=== PATIENT | female | born 1940 | race American Indian/Alaskan Native ===

== ENCOUNTER → 2018-02-08 | Outpatient (CLI) | payer OTHER | END | disposition home or self-care (01) | LOC: LAB SHORT 12:29 → LAB EV 12:29 | DX: N39.0 Urinary tract infection, site not specified (principal) | CPT/HCPCS: 87077; 87086; 87186 ==

== ENCOUNTER → 2018-05-23 | Outpatient (CLI) | payer OTHER ==
[2018-05-23 12:51] LABS: BASOPHILS ABSOLUTE AUTO 0.04 K/mm3 (0.00-0.23); BASOPHILS PERCENT AUTO 0 % (0-2); EOSINOPHILS ABSOLUTE AUTO 0.04 K/mm3 (0.00-0.68); EOSINOPHILS PERCENT AUTO 0 % (0-6); Hematocrit 39.3 % (33.0-51.0); Hemoglobin 12.7 g/dL (11.5-16.0); IMMATURE GRAN ABSOLUTE AUTO 0.04 K/mm3 (0.00-0.10); IMMATURE GRAN PERCENT AUTO 0 % (0-1); LYMPHOCYTES ABSOLUTE AUTO 2.33 K/mm3 (0.84-5.20); LYMPHOCYTES PERCENT AUTO 22 % (21-46); MONOCYTES ABSOLUTE AUTO 0.69 K/mm3 (0.16-1.47); MONOCYTES PERCENT AUTO 7 % (4-13); Mean Corpuscular HGB 25.2 pg (26.0-34.0); Mean Corpuscular HGB Conc 32.3 g/dL (31.5-36.5); Mean Corpuscular Volume 78 fL (80-100); Mean Platelet Volume 9.8 fL (9.1-12.4); NEUTROPHILS ABSOLUTE AUTO 7.38 K/mm3 (1.96-9.15); NEUTROPHILS PERCENT AUTO 70 % (41-73); Platelet Count 323 K/mm3 (150-400); RDW Coefficient Variation 15.7 % (11.7-14.2); Red Blood Cell Count 5.03 M/mm3 (3.80-5.20); White Blood Cell Count 10.52 K/mm3 (4.00-11.30)
[2018-05-23 13:06] LABS: Anion Gap 12 mmol/L (6-16); Blood Urea Nitrogen 30 mg/dL (8-24); Bun/Creatinine Ratio 26.8 (12.0-20.0); CO2, Blood 25 mmol/L (21-32); Calcium, Blood 9.6 mg/dL (8.5-10.1); Chloride, Blood 100 mmol/L (98-108); Creatinine, Blood 1.12 mg/dL (0.40-1.00); Glomerular Filtration Rate 47 (60-); Glucose, Blood 162 mg/dL (70-99); Potassium, Blood 4.1 mmol/L (3.5-5.5); Sodium, Blood 137 mmol/L (136-145); Troponin I <0.017 ng/mL (0.000-0.040)
== END ==
LOC: LAB SHORT 12:47
PROVIDERS: Family Medicine
DX: R07.9 Chest pain, unspecified (principal)
CPT/HCPCS: 80048; 84484; 85025

== ENCOUNTER → 2018-09-02 | Outpatient (CLI) | payer OTHER | END | disposition home or self-care (01) | LOC: LAB EV 14:12 → LAB SHORT 14:12 | DX: N39.0 Urinary tract infection, site not specified (principal) | CPT/HCPCS: 87077; 87086; 87186 ==

== ENCOUNTER 2018-11-06 14:29 | Inpatient (IN) | payer OTHER ==
[~2018-11-06] VITALS: Ht 160 cm; Wt 65.7 kg
[2018-11-06] MEDS ORDERED: Metformin HCl500 MG PO (18:58)
[2018-11-06] MEDS ORDERED: SIMV10 PO (18:59)
[2018-11-06] MEDS ORDERED: Mobic15 MG PO (19:00)
[2018-11-06] MEDS ORDERED: LISI5 PO (19:00)
[2018-11-06] MEDS ORDERED: LEVSOD50 PO (19:01)
[2018-11-06] MEDS ORDERED: Calcium Carb 51 EACH PO (19:02)
[2018-11-06] MEDS ORDERED: Super B Comple1 EAC2 PO (19:03)
[2018-11-06] MEDS ORDERED: FISH OIL 1,0001 EAC1 PO (19:04)
[2018-11-06] MEDS ORDERED: ASPI325 PO (19:04)
--- NOTE | 2018-11-06 20:08 | NUR ---
Initial Visit: Palliative Care Consult for AD/POLS and Advanced Care Planning. Pt is A&O and reports 10/10 pain in her upper abdomen. Pt is currently attempting to eat a little food so her nurse can give her pain medication. She dion anxiety and SOB at this time. Pt reports 6/7 depression and states she has been feeling depressed since she moved here from [place]. Engaged in therapeutic conversation about goals of care. Pt reports that she lives with her sister Holli and her niece. Her son lives in [place]. She reports no particular religous belief but does believe in God. Pt reports that she is independent at home with the exception of her niece doing the cooking and drives her around. Discussed AD/POLST and Pt reports that she does not have either one. Educated Pt on each section of AD and POLST. Pt reports that she will discuss completing form with her niece. Pt reports no other concerns at this time. Plan: F/U for symptom managment (pain and depression). Discuss with hospitalist appropriatness of starting Pt on antidepression medication and possibility of referal for counseling upon discharge.
[2018-11-07 05:58] LABS: BASOPHILS ABSOLUTE AUTO 0.03 K/mm3 (0.00-0.23); BASOPHILS PERCENT AUTO 0 % (0-2); EOSINOPHILS ABSOLUTE AUTO 0.02 K/mm3 (0.00-0.68); EOSINOPHILS PERCENT AUTO 0 % (0-6); Hemoglobin 8.3 g/dL (11.5-16.0); IMMATURE GRAN ABSOLUTE AUTO 0.05 K/mm3 (0.00-0.10); IMMATURE GRAN PERCENT AUTO 1 % (0-1); LYMPHOCYTES ABSOLUTE AUTO 1.53 K/mm3 (0.84-5.20); LYMPHOCYTES PERCENT AUTO 14 % (21-46); MONOCYTES ABSOLUTE AUTO 0.77 K/mm3 (0.16-1.47); MONOCYTES PERCENT AUTO 7 % (4-13); Mean Corpuscular HGB 22.3 pg (26.0-34.0); Mean Corpuscular HGB Conc 30.7 g/dL (31.5-36.5); Mean Corpuscular Volume 72 fL (80-100); Mean Platelet Volume 10.5 fL (9.1-12.4); NEUTROPHILS ABSOLUTE AUTO 8.44 K/mm3 (1.96-9.15); NEUTROPHILS PERCENT AUTO 78 % (41-73); Platelet Count 334 K/mm3 (150-400); RDW Coefficient Variation 15.7 % (11.7-14.2); RDW Standard Deviation 40.6 fL (35.1-46.3); Red Blood Cell Count 3.73 M/mm3 (3.80-5.20); White Blood Cell Count 10.84 K/mm3 (4.00-11.30)
[2018-11-07 06:16] LABS: Cholesterol 92 mg/dL (50-200); Triglycerides 89 mg/dL (30-160)
--- NOTE | 2018-11-07 12:57 | NUR ---
Pt visit this afternoon. Pt denies pain at this time and reports pain is managed with current regimen. She denies anxiety and depression at this time. Offered to discuss antidepressant medication with hospitalist and she denies need at this time. Will remain available.
[2018-11-07 15:15] LABS: BASOPHILS ABSOLUTE AUTO 0.03 K/mm3 (0.00-0.23); BASOPHILS PERCENT AUTO 0 % (0-2); EOSINOPHILS ABSOLUTE AUTO 0.03 K/mm3 (0.00-0.68); EOSINOPHILS PERCENT AUTO 0 % (0-6); Hematocrit 25.7 % (33.0-51.0); Hemoglobin 7.8 g/dL (11.5-16.0); IMMATURE GRAN ABSOLUTE AUTO 0.03 K/mm3 (0.00-0.10); IMMATURE GRAN PERCENT AUTO 0 % (0-1); LYMPHOCYTES ABSOLUTE AUTO 1.94 K/mm3 (0.84-5.20); LYMPHOCYTES PERCENT AUTO 22 % (21-46); MONOCYTES ABSOLUTE AUTO 0.68 K/mm3 (0.16-1.47); MONOCYTES PERCENT AUTO 8 % (4-13); Mean Corpuscular HGB 22.1 pg (26.0-34.0); Mean Corpuscular HGB Conc 30.4 g/dL (31.5-36.5); Mean Corpuscular Volume 73 fL (80-100); NEUTROPHILS PERCENT AUTO 69 % (41-73); Platelet Count 309 K/mm3 (150-400); RDW Coefficient Variation 15.7 % (11.7-14.2); RDW Standard Deviation 40.8 fL (35.1-46.3); Red Blood Cell Count 3.53 M/mm3 (3.80-5.20); White Blood Cell Count 8.71 K/mm3 (4.00-11.30)
--- NOTE | 2018-11-07 18:15 | NUR ---
ARRIVAL TO UNIT ARRIVAL TO UNIT FROM ER. PT ABLE TO INDEP STAND AND TRANSFER FROM W/C TO BED. DENIES PAIN AND N/V. LUNGS CLEAR T/O. IV TO RAC IS SL. PT LUIS DINNER IN ER. ALERT AND ORIENTED. ORIENTED TO ROOM. CALL LIGHT WITHIN REACH.
--- NOTE | 2018-11-08 06:03 | NUR ---
SHIFT SUMMARY: PT A&O X4. VS WNL. C/O PAIN ONCE THIS SHIFT; GIVEN TYLENOL PER EMAR. DENIES N/V. IND IN ROOM. VOIDING WELL. RESTING THROUGHOUT NIGHT.
[2018-11-08 06:10] LABS: BASOPHILS ABSOLUTE AUTO 0.04 K/mm3 (0.00-0.23); BASOPHILS PERCENT AUTO 1 % (0-2); EOSINOPHILS ABSOLUTE AUTO 0.01 K/mm3 (0.00-0.68); EOSINOPHILS PERCENT AUTO 0 % (0-6); Hematocrit 23.7 % (33.0-51.0); Hemoglobin 7.2 g/dL (11.5-16.0); IMMATURE GRAN ABSOLUTE AUTO 0.05 K/mm3 (0.00-0.10); IMMATURE GRAN PERCENT AUTO 1 % (0-1); LYMPHOCYTES ABSOLUTE AUTO 1.91 K/mm3 (0.84-5.20); LYMPHOCYTES PERCENT AUTO 22 % (21-46); MONOCYTES PERCENT AUTO 8 % (4-13); Mean Corpuscular HGB 22.1 pg (26.0-34.0); Mean Corpuscular HGB Conc 30.4 g/dL (31.5-36.5); Mean Corpuscular Volume 73 fL (80-100); Mean Platelet Volume 10.4 fL (9.1-12.4); NEUTROPHILS ABSOLUTE AUTO 5.85 K/mm3 (1.96-9.15); NEUTROPHILS PERCENT AUTO 68 % (41-73); Platelet Count 324 K/mm3 (150-400); RDW Coefficient Variation 15.9 % (11.7-14.2); RDW Standard Deviation 41.1 fL (35.1-46.3); Red Blood Cell Count 3.26 M/mm3 (3.80-5.20); White Blood Cell Count 8.56 K/mm3 (4.00-11.30)
[2018-11-08 06:32] LABS: Alanine Aminotransfer (ALT/SGP 13 U/L (12-78); Albumin, Blood 2.5 g/dL (3.4-5.0); Albumin/Globulin Ratio 0.7 (0.8-1.8); Alk Phos 98 U/L (50-136); Amylase, Blood 70 U/L (25-115); Anion Gap 9 mmol/L (6-16); Aspartate Aminotrans (AST/SGOT 7 U/L (12-37); Bilirubin, Total 0.4 mg/dL (0.1-1.0); Blood Urea Nitrogen 37 mg/dL (8-24); CO2, Blood 22 mmol/L (21-32); Calcium, Blood 8.6 mg/dL (8.5-10.1); Chloride, Blood 103 mmol/L (98-108); Creatinine, Blood 0.69 mg/dL (0.40-1.00); Globulin, Blood 3.4 g/dL (2.2-4.0); Glomerular Filtration Rate >60 (60-); Glucose, Blood 268 mg/dL (70-99); Potassium, Blood 4.4 mmol/L (3.5-5.5); Sodium, Blood 134 mmol/L (136-145); Total Protein, Blood 5.9 g/dL (6.4-8.2)
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
--- NOTE | 2018-11-08 18:46 | NUR ---
SHIFT SUMMARY PT HAS HAD MODERATE TP MILD ABD PAIN T/O DAY. POOR APPETITE. UNABLE TO DO CT WITH CONTRAST DUE TO LOOSING IV ACCESS AND UNABLE TO GET IV ACCESS DESPITE 9 ATTEMPTS EVEN WITH SKILLED RNS FROM DAY SURGERY. CT CHANGED TO NO CONTRAST BUT MOST LIKELY WILL BE DONE IN AM.
[2018-11-09 04:57] LABS: BASOPHILS ABSOLUTE AUTO 0.03 K/mm3 (0.00-0.23); BASOPHILS PERCENT AUTO 0 % (0-2); EOSINOPHILS ABSOLUTE AUTO 0.01 K/mm3 (0.00-0.68); EOSINOPHILS PERCENT AUTO 0 % (0-6); Hematocrit 23.6 % (33.0-51.0); Hemoglobin 7.3 g/dL (11.5-16.0); IMMATURE GRAN ABSOLUTE AUTO 0.08 K/mm3 (0.00-0.10); IMMATURE GRAN PERCENT AUTO 1 % (0-1); LYMPHOCYTES ABSOLUTE AUTO 2.15 K/mm3 (0.84-5.20); LYMPHOCYTES PERCENT AUTO 13 % (21-46); MONOCYTES ABSOLUTE AUTO 0.84 K/mm3 (0.16-1.47); MONOCYTES PERCENT AUTO 5 % (4-13); Mean Corpuscular HGB 22.7 pg (26.0-34.0); Mean Corpuscular HGB Conc 30.9 g/dL (31.5-36.5); Mean Corpuscular Volume 73 fL (80-100); NEUTROPHILS ABSOLUTE AUTO 13.12 K/mm3 (1.96-9.15); NEUTROPHILS PERCENT AUTO 81 % (41-73); Platelet Count 337 K/mm3 (150-400); RDW Coefficient Variation 15.9 % (11.7-14.2); RDW Standard Deviation 41.5 fL (35.1-46.3); Red Blood Cell Count 3.22 M/mm3 (3.80-5.20); White Blood Cell Count 16.23 K/mm3 (4.00-11.30)
[2018-11-09 05:16] LABS: Alanine Aminotransfer (ALT/SGP 12 U/L (12-78); Albumin, Blood 2.7 g/dL (3.4-5.0); Albumin/Globulin Ratio 0.7 (0.8-1.8); Alk Phos 91 U/L (50-136); Amylase, Blood 35 U/L (25-115); Anion Gap 10 mmol/L (6-16); Aspartate Aminotrans (AST/SGOT 8 U/L (12-37); Bilirubin, Total 0.4 mg/dL (0.1-1.0); Blood Urea Nitrogen 26 mg/dL (8-24); Bun/Creatinine Ratio 39.4 (12.0-20.0); CO2, Blood 22 mmol/L (21-32); Calcium, Blood 8.7 mg/dL (8.5-10.1); Chloride, Blood 104 mmol/L (98-108); Creatinine, Blood 0.66 mg/dL (0.40-1.00); Globulin, Blood 3.8 g/dL (2.2-4.0); Glomerular Filtration Rate >60 (60-); Glucose, Blood 159 mg/dL (70-99); Potassium, Blood 3.7 mmol/L (3.5-5.5); Sodium, Blood 136 mmol/L (136-145); Total Protein, Blood 6.5 g/dL (6.4-8.2)
--- NOTE | 2018-11-09 08:24 | NUR ---
SHIFT SUMMARY: PT C/O OF INCREASING PAIN OVER NIGHT. MEDICATED WITH ULTRAM Q6 AND TYLENOL PER EMAR. POOR PO INTAKE; STATES THAT EATING AND DRINKING MAKES HER ABD PAINFUL. C/O NAUSEA ONCE. SUBLINGUAL ZOFRAN ORDERED D/T NO IV ACCESS. ZOFRAN OFFERED TO PT, PT REFUSED AND STATES SHE DOES NOT FEEL NAUSEA ANYMORE. POWERGLIDE INSERTED THIS AM.
--- NOTE | 2018-11-09 17:55 | NUR ---
SUMMARY PT HAS BEEN MADE NPO FOR BOWEL REST PER . PT CONTINUES TO PASS FLATUS. VOIDING WNL. PAIN MANAGED PER EMAR. PT ENC TO CALL FOR ASSISTANCE TO BATHROOM DUE TO DIZZINESS. BED ALARM PLACED FOR SAFETY. PT STATES UNDERSTANDING. CALL LIGHT IN REACH. WCTM
[2018-11-10 05:31] LABS: BASOPHILS ABSOLUTE AUTO 0.02 K/mm3 (0.00-0.23); BASOPHILS PERCENT AUTO 0 % (0-2); EOSINOPHILS ABSOLUTE AUTO 0.01 K/mm3 (0.00-0.68); EOSINOPHILS PERCENT AUTO 0 % (0-6); Hematocrit 19.7 % (33.0-51.0); IMMATURE GRAN ABSOLUTE AUTO 0.06 K/mm3 (0.00-0.10); IMMATURE GRAN PERCENT AUTO 1 % (0-1); LYMPHOCYTES ABSOLUTE AUTO 1.99 K/mm3 (0.84-5.20); LYMPHOCYTES PERCENT AUTO 16 % (21-46); MONOCYTES ABSOLUTE AUTO 0.72 K/mm3 (0.16-1.47); MONOCYTES PERCENT AUTO 6 % (4-13); Mean Corpuscular HGB 22.3 pg (26.0-34.0); Mean Corpuscular HGB Conc 30.5 g/dL (31.5-36.5); Mean Corpuscular Volume 73 fL (80-100); Mean Platelet Volume 10.3 fL (9.1-12.4); NEUTROPHILS ABSOLUTE AUTO 9.66 K/mm3 (1.96-9.15); NEUTROPHILS PERCENT AUTO 77 % (41-73); Platelet Count 297 K/mm3 (150-400); RDW Coefficient Variation 16.3 % (11.7-14.2); RDW Standard Deviation 41.5 fL (35.1-46.3); Red Blood Cell Count 2.69 M/mm3 (3.80-5.20); White Blood Cell Count 12.46 K/mm3 (4.00-11.30)
[2018-11-10 06:13] LABS: Alanine Aminotransfer (ALT/SGP 10 U/L (12-78); Albumin, Blood 2.3 g/dL (3.4-5.0); Albumin/Globulin Ratio 0.7 (0.8-1.8); Alk Phos 80 U/L (50-136); Anion Gap 8 mmol/L (6-16); Aspartate Aminotrans (AST/SGOT 12 U/L (12-37); Bilirubin, Total 0.3 mg/dL (0.1-1.0); Blood Urea Nitrogen 17 mg/dL (8-24); CO2, Blood 23 mmol/L (21-32); Calcium, Blood 8.4 mg/dL (8.5-10.1); Chloride, Blood 103 mmol/L (98-108); Creatinine, Blood 0.63 mg/dL (0.40-1.00); Globulin, Blood 3.4 g/dL (2.2-4.0); Glomerular Filtration Rate >60 (60-); Glucose, Blood 126 mg/dL (70-99); Potassium, Blood 3.8 mmol/L (3.5-5.5); Sodium, Blood 134 mmol/L (136-145); Total Protein, Blood 5.7 g/dL (6.4-8.2)
[2018-11-10 07:15] LABS: Hematocrit 20.4 % (33.0-51.0); Hemoglobin 6.2 g/dL (11.5-16.0)
--- NOTE | 2018-11-10 09:03 | NUR ---
SUMMARY PT WITH NEW ORDERS FOR CT ABD AND BLOOD TRANSFUSION ORDERED PER DR DELEON THIS AM DUE TO CONTINUED DECLINE IN H/H. SEE VS. OUT TO CT THIS AM. PT ALERT. BLOOD PERMIT SIGNED.
--- NOTE | 2018-11-10 12:26 | NUR ---
started 0800 flagyl. delayed due to prbcs infusing. unable to start second iv site.
--- NOTE | 2018-11-10 17:56 | NUR ---
SUMMARY PT REC'D 1 UNIT PRBCS THIS AM FOR HEMOGLOBIN OF 6.2 THIS AM. TOLERATED WELL. MEDICATED ONCE DURING SHIFT FOR ABD AND BACK PAIN. FLAGYL ADMINISTERED LATE TODAY DUE TO PRBCS INFUSING AND UNABLE TO OBTAIN SECOND IV SITE. SLIDING AFTERNOON FLAGYL TO 1800 TO GET BACK ON SCHEDULE. PT SLEPT OFF AND ON T/O AFTERNOON. CALL LIGHT IN REACH.
[2018-11-11 06:06] LABS: BASOPHILS ABSOLUTE AUTO 0.04 K/mm3 (0.00-0.23); BASOPHILS PERCENT AUTO 0 % (0-2); EOSINOPHILS ABSOLUTE AUTO 0.02 K/mm3 (0.00-0.68); EOSINOPHILS PERCENT AUTO 0 % (0-6); Hematocrit 22.1 % (33.0-51.0); IMMATURE GRAN ABSOLUTE AUTO 0.04 K/mm3 (0.00-0.10); IMMATURE GRAN PERCENT AUTO 0 % (0-1); LYMPHOCYTES ABSOLUTE AUTO 1.39 K/mm3 (0.84-5.20); LYMPHOCYTES PERCENT AUTO 15 % (21-46); MONOCYTES ABSOLUTE AUTO 0.63 K/mm3 (0.16-1.47); MONOCYTES PERCENT AUTO 7 % (4-13); Mean Corpuscular HGB 23.8 pg (26.0-34.0); Mean Corpuscular HGB Conc 31.7 g/dL (31.5-36.5); Mean Corpuscular Volume 75 fL (80-100); Mean Platelet Volume 9.8 fL (9.1-12.4); NEUTROPHILS ABSOLUTE AUTO 7.27 K/mm3 (1.96-9.15); NEUTROPHILS PERCENT AUTO 78 % (41-73); Platelet Count 287 K/mm3 (150-400); Red Blood Cell Count 2.94 M/mm3 (3.80-5.20); White Blood Cell Count 9.39 K/mm3 (4.00-11.30)
[2018-11-11 06:26] LABS: Alanine Aminotransfer (ALT/SGP 10 U/L (12-78); Albumin, Blood 2.2 g/dL (3.4-5.0); Albumin/Globulin Ratio 0.7 (0.8-1.8); Alk Phos 77 U/L (50-136); Anion Gap 11 mmol/L (6-16); Aspartate Aminotrans (AST/SGOT 13 U/L (12-37); Bilirubin, Total 0.3 mg/dL (0.1-1.0); Blood Urea Nitrogen 8 mg/dL (8-24); Bun/Creatinine Ratio 12.2 (12.0-20.0); CO2, Blood 21 mmol/L (21-32); Calcium, Blood 8.1 mg/dL (8.5-10.1); Chloride, Blood 103 mmol/L (98-108); Creatinine, Blood 0.65 mg/dL (0.40-1.00); Globulin, Blood 3.2 g/dL (2.2-4.0); Glomerular Filtration Rate >60 (60-); Glucose, Blood 204 mg/dL (70-99); Potassium, Blood 3.4 mmol/L (3.5-5.5); Sodium, Blood 135 mmol/L (136-145); Total Protein, Blood 5.4 g/dL (6.4-8.2)
--- NOTE | 2018-11-11 07:50 | NUR ---
SUMMARY PT WITH INTERMITTENT ABD CRAMPING TONIGHT WHICH WAS REPORTED IMPROVED WITH WARM BLANKET
--- NOTE | 2018-11-11 17:21 | NUR ---
SUMMARY NO ACUTE CHANGES T/O SHIFT. PT REC'D UNIT PRBCS. WILL START SECOND HALF OF K RIDER WHEN ABX CURRENTLY INFUSING IS COMPLETE. PT VOIDING WELL AND PASSING FLATUS. REPORTED FEELS HUNGRY. AMBULATED IN ROOM. VSS. USES CALL LIGHT APPROPRIATELY.
[2018-11-12 06:07] LABS: BASOPHILS ABSOLUTE AUTO 0.05 K/mm3 (0.00-0.23); BASOPHILS PERCENT AUTO 1 % (0-2); EOSINOPHILS ABSOLUTE AUTO 0.04 K/mm3 (0.00-0.68); EOSINOPHILS PERCENT AUTO 1 % (0-6); Hematocrit 28.3 % (33.0-51.0); Hemoglobin 9.2 g/dL (11.5-16.0); IMMATURE GRAN ABSOLUTE AUTO 0.02 K/mm3 (0.00-0.10); IMMATURE GRAN PERCENT AUTO 0 % (0-1); LYMPHOCYTES ABSOLUTE AUTO 1.59 K/mm3 (0.84-5.20); LYMPHOCYTES PERCENT AUTO 20 % (21-46); MONOCYTES ABSOLUTE AUTO 0.62 K/mm3 (0.16-1.47); MONOCYTES PERCENT AUTO 8 % (4-13); Mean Corpuscular HGB Conc 32.5 g/dL (31.5-36.5); Mean Corpuscular Volume 77 fL (80-100); Mean Platelet Volume 9.5 fL (9.1-12.4); NEUTROPHILS ABSOLUTE AUTO 5.57 K/mm3 (1.96-9.15); NEUTROPHILS PERCENT AUTO 71 % (41-73); Platelet Count 322 K/mm3 (150-400); RDW Coefficient Variation 17.8 % (11.7-14.2); RDW Standard Deviation 48.5 fL (35.1-46.3); Red Blood Cell Count 3.68 M/mm3 (3.80-5.20); White Blood Cell Count 7.89 K/mm3 (4.00-11.30)
[2018-11-12 06:28] LABS: Anion Gap 10 mmol/L (6-16); Blood Urea Nitrogen 12 mg/dL (8-24); Bun/Creatinine Ratio 19.7 (12.0-20.0); CO2, Blood 21 mmol/L (21-32); Calcium, Blood 8.6 mg/dL (8.5-10.1); Chloride, Blood 105 mmol/L (98-108); Creatinine, Blood 0.61 mg/dL (0.40-1.00); Glomerular Filtration Rate >60 (60-); Glucose, Blood 168 mg/dL (70-99); Potassium, Blood 3.6 mmol/L (3.5-5.5); Sodium, Blood 136 mmol/L (136-145)
--- NOTE | 2018-11-12 07:22 | NUR ---
SUMMARY PT WITH NO DISTRESS TONIGHT.CLINIMIX INFUSING. BLOOD SUGAR THIS AM IS 168. H/H IMPROVING.
--- NOTE | 2018-11-12 12:18 | NUR ---
PATIENT CARE Patient gave student permission to provide patient care on 11/13/18 from 0630 to 1200.
--- NOTE | 2018-11-12 18:21 | NUR ---
SHIFT SUMMARY PT BEGAN HAVING BMS TODAY, BLACK LQ. SENT TO LAB AND HOSPITALIST UPDATED. PT ONLY DOING SIPS OF WATER. DENIES ABD PAIN.
[2018-11-12 19:19] LABS: Adenovirus F 40/41 Not Detected (NOT DETECT); Astrovirus Not Detected (NOT DETECT); Campylobacter Sp Not Detected (NOT DETECT); Cryptosporidium Not Detected (NOT DETECT); Cyclospora Cayetanensis Not Detected (NOT DETECT); E. Coli O157 Not Detected (NOT DETECT); Entamoeba Histolytica Not Detected (NOT DETECT); Enteroaggregative E. coli-EAEC Not Detected (NOT DETECT); Enteropathogenic E. coli-EPEC Not Detected (NOT DETECT); Enterotoxigenic E. coli-ETEC Not Detected (NOT DETECT); Giardia Lamblia Not Detected (NOT DETECT); Norovirus GI/GII Not Detected (NOT DETECT); Plesiomonas Shigelloides Not Detected (NOT DETECT); Rotavirus A Not Detected (NOT DETECT); Salmonella Sp Not Detected (NOT DETECT); Sapovirus Not Detected (NOT DETECT); Shiga Toxin-prod E. coli-STEC Not Detected (NOT DETECT); Shigella/Enteroin E. coli-EIEC Not Detected (NOT DETECT); Vibrio Cholerae Not Detected (NOT DETECT); Vibrio Sp Not Detected (NOT DETECT); Yersinia Enterocolitica Not Detected (NOT DETECT)
[2018-11-13 06:00] LABS: BASOPHILS ABSOLUTE AUTO 0.04 K/mm3 (0.00-0.23); BASOPHILS PERCENT AUTO 1 % (0-2); EOSINOPHILS ABSOLUTE AUTO 0.04 K/mm3 (0.00-0.68); EOSINOPHILS PERCENT AUTO 1 % (0-6); Hematocrit 30.3 % (33.0-51.0); Hemoglobin 9.6 g/dL (11.5-16.0); IMMATURE GRAN ABSOLUTE AUTO 0.02 K/mm3 (0.00-0.10); IMMATURE GRAN PERCENT AUTO 0 % (0-1); LYMPHOCYTES ABSOLUTE AUTO 1.81 K/mm3 (0.84-5.20); LYMPHOCYTES PERCENT AUTO 22 % (21-46); MONOCYTES ABSOLUTE AUTO 0.65 K/mm3 (0.16-1.47); MONOCYTES PERCENT AUTO 8 % (4-13); Mean Corpuscular HGB Conc 31.7 g/dL (31.5-36.5); Mean Corpuscular Volume 79 fL (80-100); Mean Platelet Volume 9.3 fL (9.1-12.4); NEUTROPHILS ABSOLUTE AUTO 5.57 K/mm3 (1.96-9.15); NEUTROPHILS PERCENT AUTO 69 % (41-73); Platelet Count 387 K/mm3 (150-400); RDW Coefficient Variation 18.9 % (11.7-14.2); RDW Standard Deviation 52.1 fL (35.1-46.3); Red Blood Cell Count 3.84 M/mm3 (3.80-5.20); White Blood Cell Count 8.13 K/mm3 (4.00-11.30)
[2018-11-13 06:20] LABS: Alanine Aminotransfer (ALT/SGP 13 U/L (12-78); Albumin, Blood 2.4 g/dL (3.4-5.0); Albumin/Globulin Ratio 0.6 (0.8-1.8); Alk Phos 90 U/L (50-136); Anion Gap 11 mmol/L (6-16); Aspartate Aminotrans (AST/SGOT 11 U/L (12-37); Bilirubin, Total 0.4 mg/dL (0.1-1.0); Blood Urea Nitrogen 18 mg/dL (8-24); Bun/Creatinine Ratio 30.6 (12.0-20.0); CO2, Blood 21 mmol/L (21-32); Chloride, Blood 109 mmol/L (98-108); Creatinine, Blood 0.59 mg/dL (0.40-1.00); Globulin, Blood 3.9 g/dL (2.2-4.0); Glomerular Filtration Rate >60 (60-); Glucose, Blood 187 mg/dL (70-99); Potassium, Blood 3.6 mmol/L (3.5-5.5); Sodium, Blood 141 mmol/L (136-145); Total Protein, Blood 6.3 g/dL (6.4-8.2)
--- NOTE | 2018-11-13 07:08 | NUR ---
SHIFT SUMMARY HAD A GOOD SHIFT, ABLE TO DISCONNECT SELF FROM SCD'S AND AMBULATE TO BSC WITH STANDBY ASSIST. NO C/O PAIN OR DISCOMFORT NOTED THIS SHIFT. DENIES FURTHER NEEDS AT THIS TIME. SAFETY MEASURES IN PLACE. WILL GIVE HAND OFF TO ONCOMING SHIFT USING SBAR DURING BEDSIDE REPORT.
--- NOTE | 2018-11-13 13:20 | NUR ---
PATIENT GAVE THIS STUDENT NURSE PERMISSION FOR CARE
[2018-11-13 13:48] LABS: Stool Occult Blood Guaiac 1 Pos (Neg)
--- NOTE | 2018-11-13 19:24 | NUR ---
SHIFT SUMMARY PT HAS DONE WELL WITH CLEAR LQS FOR BREAKFAST AND LUNCH. HALF PORTIONS OF FULL LQ GIVEN FOR DINNER. TOLERATED WELL. HALF PORTIONS OF REG DIET ORDERED FOR BREAKFAST.
--- NOTE | 2018-11-14 00:13 | NUR ---
C/O BACK PAIN AND WANTED TO GET OOB AND SIT IN CHAIR. CHAIR PLACED AT BEDSIDE AND PT AMBULATED TO IT WITH STANDBY ASSIST, TOLERATED WELL.
[2018-11-14 05:07] LABS: BASOPHILS ABSOLUTE AUTO 0.04 K/mm3 (0.00-0.23); BASOPHILS PERCENT AUTO 0 % (0-2); EOSINOPHILS ABSOLUTE AUTO 0.01 K/mm3 (0.00-0.68); EOSINOPHILS PERCENT AUTO 0 % (0-6); Hematocrit 29.2 % (33.0-51.0); Hemoglobin 9.3 g/dL (11.5-16.0); IMMATURE GRAN ABSOLUTE AUTO 0.04 K/mm3 (0.00-0.10); IMMATURE GRAN PERCENT AUTO 0 % (0-1); LYMPHOCYTES ABSOLUTE AUTO 1.82 K/mm3 (0.84-5.20); LYMPHOCYTES PERCENT AUTO 19 % (21-46); MONOCYTES ABSOLUTE AUTO 0.89 K/mm3 (0.16-1.47); MONOCYTES PERCENT AUTO 9 % (4-13); Mean Corpuscular HGB 24.6 pg (26.0-34.0); Mean Corpuscular HGB Conc 31.8 g/dL (31.5-36.5); Mean Corpuscular Volume 77 fL (80-100); Mean Platelet Volume 9.7 fL (9.1-12.4); NEUTROPHILS ABSOLUTE AUTO 6.95 K/mm3 (1.96-9.15); NEUTROPHILS PERCENT AUTO 71 % (41-73); Platelet Count 408 K/mm3 (150-400); RDW Coefficient Variation 19.1 % (11.7-14.2); Red Blood Cell Count 3.78 M/mm3 (3.80-5.20); White Blood Cell Count 9.75 K/mm3 (4.00-11.30)
--- NOTE | 2018-11-14 06:17 | NUR ---
NO CHANGES SINCE START OF SHIFT. ABLE TO DISCONNECT SELF FROM SCD'S AND AMBULATE TO BSC WITH STANDBY ASSIST. SAT UP IN CHAIR AT BEDSIDE FOR A WHILE THIS SHIFT. MEDICATED FOR BACK PAIN X1, EFFECTIVE. DENIES FURTHER NEEDS AT THIS TIME. SAFETY MEASURES IN PLACE. WILL GIVE HAND OFF TO ONCOMING SHIFT USING SBAR DURING BEDSIDE REPORT.
[2018-11-14] MEDS ORDERED: METR500 PO (11:27)
[2018-11-14] MEDS ORDERED: LOSA25 PO (11:27)
[2018-11-14] MEDS ORDERED: LEVFLO500 PO (11:27)
[2018-11-14] MEDS ORDERED: HYDR1TAB94 PO (11:28)
[2018-11-14] MEDS ORDERED: ONDA4ODT MM (11:28)
[2018-11-14] MEDS ORDERED: BISA10S PR (11:29)
[2018-11-14] MEDS ORDERED: SACC250C PO (11:29)
--- NOTE | 2018-11-14 11:37 | NUR ---
SCRIPTS CALLED TO [facility]
== END 2018-11-14 14:59 | disposition home or self-care (01) | DRG 438 ==
LOC: ER 14:29 → ERHOLD 19:47 → SURS 19:47
PROVIDERS: Family Medicine; Surgery; ADMIT Hospitalist
DX: K85.90 Acute pancreatitis without necrosis or infection, unspecified (principal); K26.5 Chronic or unspecified duodenal ulcer with perforation; E87.1 Hypo-osmolality and hyponatremia; D64.9 Anemia, unspecified; E11.9 Type 2 diabetes mellitus without complications; I10 Essential (primary) hypertension; E03.9 Hypothyroidism, unspecified; R94.4 Abnormal results of kidney function studies; K82.4 Cholesterolosis of gallbladder; E78.5 Hyperlipidemia, unspecified; Z87.891 Personal history of nicotine dependence; Z79.84 Long term (current) use of oral hypoglycemic drugs; Z79.82 Long term (current) use of aspirin; Z79.899 Other long term (current) drug therapy
CPT/HCPCS: 36415; 74150; 74174; 74240; 76705; 80048; 80053; 82150; 82272; 82465; 82947; 83690; 84478; 85014; 85018; 85025; 86850; 86900; 86901; 86923; 87507; 90686; 96372-59; 96374; 99285-25; G0008; J1650; J1956; J3010; J3480; J7042; J7050; J7120; P9016; Q9967

== ENCOUNTER → 2018-11-06 | Outpatient (CLI) | payer OTHER ==
[~2018-11-06] MED LIST: ASPI325 PO; Calcium Carb 51 EACH PO; FISH OIL 1,0001 EAC1 PO; LEVSOD50 PO; LISI5 PO; Metformin HCl500 MG PO; Mobic15 MG PO; SIMV10 PO; Super B Comple1 EAC2 PO
[2018-11-06 13:36] LABS: BASOPHILS ABSOLUTE AUTO 0.04 K/mm3 (0.00-0.23); BASOPHILS PERCENT AUTO 0 % (0-2); EOSINOPHILS ABSOLUTE AUTO 0.01 K/mm3 (0.00-0.68); EOSINOPHILS PERCENT AUTO 0 % (0-6); Hematocrit 33.6 % (33.0-51.0); Hemoglobin 10.7 g/dL (11.5-16.0); IMMATURE GRAN ABSOLUTE AUTO 0.05 K/mm3 (0.00-0.10); IMMATURE GRAN PERCENT AUTO 0 % (0-1); LYMPHOCYTES ABSOLUTE AUTO 1.31 K/mm3 (0.84-5.20); LYMPHOCYTES PERCENT AUTO 10 % (21-46); MONOCYTES ABSOLUTE AUTO 0.47 K/mm3 (0.16-1.47); MONOCYTES PERCENT AUTO 4 % (4-13); Mean Corpuscular HGB 22.7 pg (26.0-34.0); Mean Corpuscular HGB Conc 31.8 g/dL (31.5-36.5); Mean Corpuscular Volume 71 fL (80-100); Mean Platelet Volume 10.1 fL (9.1-12.4); NEUTROPHILS ABSOLUTE AUTO 10.86 K/mm3 (1.96-9.15); NEUTROPHILS PERCENT AUTO 85 % (41-73); Platelet Count 434 K/mm3 (150-400); RDW Coefficient Variation 15.8 % (11.7-14.2); RDW Standard Deviation 39.8 fL (35.1-46.3); Red Blood Cell Count 4.71 M/mm3 (3.80-5.20); White Blood Cell Count 12.74 K/mm3 (4.00-11.30)
[2018-11-06 13:49] LABS: Albumin, Blood 3.3 g/dL (3.4-5.0); Albumin/Globulin Ratio 0.7 (0.8-1.8); Bilirubin, Total 0.4 mg/dL (0.1-1.0); Bun/Creatinine Ratio 26.8 (12.0-20.0); Calcium, Blood 9.4 mg/dL (8.5-10.1); Creatinine, Blood 0.97 mg/dL (0.40-1.00); Globulin, Blood 4.8 g/dL (2.2-4.0); Potassium, Blood 3.9 mmol/L (3.5-5.5); Total Protein, Blood 8.1 g/dL (6.4-8.2)
== END | disposition home or self-care (01) ==
LOC: LAB SHORT 13:32 → LAB EV 13:32
PROVIDERS: Physician Assistant
DX: R10.84 Generalized abdominal pain (principal)
CPT/HCPCS: 80053; 83690; 85025

== ENCOUNTER 2018-11-16 18:13 | Inpatient (IN) | payer OTHER ==
[~2018-11-16] VITALS: Ht 160 cm; Wt 62.6 kg
[~2018-11-16 18:13] MED LIST changes: +BISA10S PR; +HYDR1TAB94 PO; +LEVFLO500 PO; +LOSA25 PO; +METR500 PO; +ONDA4ODT MM; +SACC250C PO
--- NOTE | 2018-11-17 04:50 | NUR ---
*SHIFT SUMMARY* PT IS ALERT AND CONFUSED. PATIENT ARRIVED TO ROOM AT 0105 VIA STRETCHER FROM ED. ON ROOM AIR, PT STOOD AND TRANSFERED FROM STRETCHER TO BED. PT WAS NOT ABLE TO GIVE A CLEAR HISTORY, OR KNOW WHEN SHE TOOK/TAKES HER MEDICATIONS, OR WHAT THEY ARE FOR. PT STATES SHE LIVES AT HOME WITH HER SISTERS AND HER NIECE. PT SAYS THAT SHE DOES HER OWN MEDICATIONS. PT STATES SHE HAS 10/10 PAIN IN ABDOMEN THAT MOVES INTO HER BACK, PT STATES PAIN MEDICATIONS DO NOT PROVIDE RELIEF, NOR DOES REPOSITIONING OR HEAT/COLD THERAPY. DIET IS NPO. PT SLEPT WELL THROUGHOUT THE NIGHT WITH BED ALARM ON AND CALL LIGHT IN REACH.
[2018-11-17 04:54] LABS: Mean Corpuscular HGB 24.6 pg (26.0-34.0); Mean Corpuscular Volume 79 fL (80-100); Mean Platelet Volume 9.6 fL (9.1-12.4); Platelet Count 434 K/mm3 (150-400); RDW Coefficient Variation 19.5 % (11.7-14.2); RDW Standard Deviation 56.1 fL (35.1-46.3); Red Blood Cell Count 3.66 M/mm3 (3.80-5.20); White Blood Cell Count 11.04 K/mm3 (4.00-11.30)
[2018-11-17 05:17] LABS: Alanine Aminotransfer (ALT/SGP 12 U/L (12-78); Albumin, Blood 2.4 g/dL (3.4-5.0); Albumin/Globulin Ratio 0.6 (0.8-1.8); Alk Phos 80 U/L (50-136); Anion Gap 13 mmol/L (6-16); Aspartate Aminotrans (AST/SGOT 8 U/L (12-37); Bilirubin, Total 0.5 mg/dL (0.1-1.0); Blood Urea Nitrogen 14 mg/dL (8-24); Bun/Creatinine Ratio 24.5 (12.0-20.0); CO2, Blood 20 mmol/L (21-32); Calcium, Blood 8.7 mg/dL (8.5-10.1); Chloride, Blood 105 mmol/L (98-108); Creatinine, Blood 0.57 mg/dL (0.40-1.00); Globulin, Blood 3.8 g/dL (2.2-4.0); Glomerular Filtration Rate >60 (60-); Glucose, Blood 168 mg/dL (70-99); Potassium, Blood 3.6 mmol/L (3.5-5.5); Sodium, Blood 138 mmol/L (136-145); Total Protein, Blood 6.2 g/dL (6.4-8.2)
--- NOTE | 2018-11-17 10:19 | NUR ---
PATIENT DID NOT EAT BREAKFAST THIS SHIFT DUE TO BEING NPO AT THIS TIME.
--- NOTE | 2018-11-17 16:05 | NUR ---
PT IS A/OX3, UP WITH MINIMAL STANDBY ASSIST TO THE BATHROOM, THE PT TODAY WAS MEDICATED FOR PAIN X1 SO FAR, AFTR TRYING LUNCH TODAY THE PT REPORTED INTERMITTEN PERIODS OF PAIN FOR A SHORT TIME, THE PT DENIED ANY N/V, THE PT APPEARS TO BE BREATHING EASILY ON RA AT THIS TIME, CALL LIGHT IN REACH
--- NOTE | 2018-11-17 20:21 | NUR ---
1924 PT LYING IN BED, DENIES ANY DISCOMFORT AT THIS TIME. NO APPARENT SIGNS OF DISTRESS. CALL LIGHT IS IN REACH.
--- NOTE | 2018-11-18 06:31 | NUR ---
11/17/18 2200 PT LYING IN BED, WATCHING TV. NO APPARENT SIGNS OF DISTRESS. CALL LIGHT IS IN REACH. 11/18/18 0000 PT LYING IN BED, EYES CLOSED, APPEARS TO BE RESTING. BREATHING IS EVEN, UNLABORED. NO APPARENT SIGNS OF DISTRESS. CALL LIGHT IS IN REACH.
--- NOTE | 2018-11-18 06:32 | NUR ---
0200 PT LYING IN BED, EYES CLOSED, APPEARS TO BE RESTING. BREATHING IS EVEN, UNLABORED. NO APPARENT SIGNS OF DISTRESS. CALL LIGHT IS IN REACH. 0400 PT LYING IN BED, EYES CLOSED, APPEARS TO BE RESTING. WAKES EASILY TO VERBAL STIMULI. NO APPARENT SIGNS OF DISTRESS. CALL LIGHT IS IN REACH.
--- NOTE | 2018-11-18 06:33 | NUR ---
PT IS AAO X 4, ON RA. PT DENIED ANY DISCOMFORT FOR THIS SHIFT.
--- NOTE | 2018-11-18 06:37 | NUR ---
PT SITTING UP IN BED, AWAKE, DENIES NEED FOR ANYTHING AT THIS TIME. NO APPARENT SIGNS OF DISTRESS. CALL LIGHT IS IN REACH. NO OTHER CHANGES THIS SHIFT.
--- NOTE | 2018-11-18 16:10 | NUR ---
PT IS A/OX3, PLEASANT AND COOPERATIVE, THE PT IS UP IND IN HER ROOM, THE PT WAS TRIED ON JELLO AND JUICE THIS AM PER HER REQUEST AND WAS ABLE TO TOLERATE THE SMALL PORTIONS, THIS AFTERNOON THE PT WAS GIVEN A FULL LIQUID DIET, HOWEVER,SHE REFUSED THE DIET, SHE ASKED FOR TOAST WITH PEANUT BUTTER AND WAS GIVEN THAT PER DR. DEL ROSARIO APPROVAL, THE PT ATE ONLY A FEW BITES OF THAT, PT WAS ENCOURAGED TO EAT A LITTLE MORE TO SEE IF SHE COULD TOLERATE IT, HOWEVER SHE DECLINED, WANTS TO WAIT FOR DINNER AND THEN BREAKFAST IN THE AM, THE PT APPEARS TO BE BREATHING EASILY ON RA, CALL LIGHT IN REACH, WILL CONTINUE TO MONITOR AND ASSESS FOR CHANGES
--- NOTE | 2018-11-19 11:29 | NUR ---
Advance Directive Education/Spiritual Care visit conducted, Patient was lying in bed and alert when I entered patients room. I introduced myself and patient was a little confucsed and so I went through my introduction again and patient began to comprehend. I notice this process all the way through the visit that understanding was delayed but we had a wonderful visit. I conducted a life review, explored patient's belief system, provided companionship and prayer. patient responded well and showed signs of an elevated mood. I also discussed with patient the importance and process of the advance directive. Patient stated that she did not want chest compressions, a feeding tube or being placed on a breathing machine. I told her how to document all this in the forms and I showed her in each section what to do, to get it notarized and how to file it. Patient's comprehension was minamal but I think she got the basic idea at least enough to talk about it with her son, sister of niece.
--- NOTE | 2018-11-20 01:20 | NUR ---
0100 PT IS AWAKE UNABLE TO SLEEP DUE TO MOSTLY BACK PAIN PER THE PT, OFFERED PT HEAT THERAPY TO THE BACK THE PT DECLINED THAT, ASSISTED THE PT WITH REPOSITIONING, WILL MEDICATE FOR PAIN WHEN ALLOWED
[2018-11-20 05:12] LABS: BASOPHILS ABSOLUTE AUTO 0.02 K/mm3 (0.00-0.23); BASOPHILS PERCENT AUTO 0 % (0-2); EOSINOPHILS ABSOLUTE AUTO 0.01 K/mm3 (0.00-0.68); EOSINOPHILS PERCENT AUTO 0 % (0-6); Hemoglobin 8.8 g/dL (11.5-16.0); IMMATURE GRAN ABSOLUTE AUTO 0.04 K/mm3 (0.00-0.10); IMMATURE GRAN PERCENT AUTO 0 % (0-1); LYMPHOCYTES ABSOLUTE AUTO 1.67 K/mm3 (0.84-5.20); LYMPHOCYTES PERCENT AUTO 18 % (21-46); MONOCYTES PERCENT AUTO 6 % (4-13); Mean Corpuscular HGB 24.3 pg (26.0-34.0); Mean Corpuscular HGB Conc 31.4 g/dL (31.5-36.5); Mean Corpuscular Volume 77 fL (80-100); Mean Platelet Volume 9.5 fL (9.1-12.4); NEUTROPHILS ABSOLUTE AUTO 7.02 K/mm3 (1.96-9.15); NEUTROPHILS PERCENT AUTO 75 % (41-73); Platelet Count 461 K/mm3 (150-400); Red Blood Cell Count 3.62 M/mm3 (3.80-5.20); White Blood Cell Count 9.36 K/mm3 (4.00-11.30)
[2018-11-20] MEDS ORDERED: ACET325 PO (12:42)
[2018-11-20] MEDS ORDERED: DOCU100 PO (12:42)
[2018-11-20] MEDS ORDERED: TRAM50 PO (12:43)
--- NOTE | 2018-11-20 17:21 | NUR ---
patient discharged with family. meds faxed to [facility]. IV discontinued.
== END 2018-11-20 14:17 | disposition home or self-care (01) | DRG 438 ==
LOC: ER 18:13 → MEDS 23:16
PROVIDERS: Hospitalist; ADMIT Internal Medicine
DX: K85.90 Acute pancreatitis without necrosis or infection, unspecified (principal); K26.5 Chronic or unspecified duodenal ulcer with perforation; E11.9 Type 2 diabetes mellitus without complications; I10 Essential (primary) hypertension; E03.9 Hypothyroidism, unspecified; E78.5 Hyperlipidemia, unspecified; Z79.84 Long term (current) use of oral hypoglycemic drugs; Z79.82 Long term (current) use of aspirin; Z79.899 Other long term (current) drug therapy; Z87.891 Personal history of nicotine dependence
CPT/HCPCS: 36415; 80053; 82947; 85025; 85027; 99284; A9270-GY; J1650; J3010; J7030

== ENCOUNTER 2018-12-01 17:25 | Inpatient (IN) | payer OTHER ==
[~2018-12-01] VITALS: Ht 162.6 cm; Wt 63.5 kg
[~2018-12-01 17:25] MED LIST changes: +ACET325 PO; +DOCU100 PO; +TRAM50 PO
[2018-12-01 17:57] LABS: BASOPHILS PERCENT AUTO 0 % (0-2); EOSINOPHILS PERCENT AUTO 0 % (0-6); IMMATURE GRAN PERCENT AUTO 1 % (0-1); MONOCYTES PERCENT AUTO 4 % (4-13); Mean Corpuscular HGB 25.5 pg (26.0-34.0); Mean Corpuscular HGB Conc 29.2 g/dL (31.5-36.5); Mean Platelet Volume 10.2 fL (9.1-12.4); Platelet Count 351 K/mm3 (150-400); RDW Coefficient Variation 21.9 % (11.7-14.2); Red Blood Cell Count 1.65 M/mm3 (3.80-5.20); White Blood Cell Count 10.99 K/mm3 (4.00-11.30)
[2018-12-01 17:59] LABS: BASOPHILS ABSOLUTE AUTO 0.01 K/mm3 (0.00-0.23); IMMATURE GRAN ABSOLUTE AUTO 0.09 K/mm3 (0.00-0.10); LYMPHOCYTES PERCENT AUTO 8 % (21-46); MONOCYTES ABSOLUTE AUTO 0.44 K/mm3 (0.16-1.47); Mean Corpuscular Volume 87 fL (80-100); NEUTROPHILS ABSOLUTE AUTO 9.59 K/mm3 (1.96-9.15); NEUTROPHILS PERCENT AUTO 87 % (41-73)
[2018-12-01 18:01] LABS: Hematocrit 14.4 % (33.0-51.0); Hemoglobin 4.2 g/dL (11.5-16.0)
[2018-12-01 18:12] LABS: International Normalized Ratio 1.13; Prothrombin Time Results 11.8 Sec (9.7-11.5)
[2018-12-01 18:22] LABS: Alanine Aminotransfer (ALT/SGP 8 U/L (12-78); Albumin, Blood 1.9 g/dL (3.4-5.0); Albumin/Globulin Ratio 0.7 (0.8-1.8); Alk Phos 49 U/L (50-136); Anion Gap 14 mmol/L (6-16); Aspartate Aminotrans (AST/SGOT 7 U/L (12-37); Bilirubin, Total 0.3 mg/dL (0.1-1.0); Blood Urea Nitrogen 45 mg/dL (8-24); Bun/Creatinine Ratio 53.3 (12.0-20.0); CO2, Blood 16 mmol/L (21-32); Calcium, Blood 7.7 mg/dL (8.5-10.1); Chloride, Blood 112 mmol/L (98-108); Creatinine, Blood 0.84 mg/dL (0.40-1.00); Globulin, Blood 2.6 g/dL (2.2-4.0); Glomerular Filtration Rate >60 (60-); Glucose, Blood 240 mg/dL (70-99); Sodium, Blood 142 mmol/L (136-145); Total Protein, Blood 4.5 g/dL (6.4-8.2)
[2018-12-01 19:46] LABS: Source, Urine Catheter
[2018-12-01 19:48] LABS: Appearance, Urine Clear (Clear); Bilirubin, Urine Neg (Neg); Blood, Urine Neg (Neg); Color, Urine Yellow (P-Yellow); Glucose Qualitative, Urine Neg (Neg); Ketones, Urine 2+ (Neg); Leukocyte Esterase, Urine Neg (Neg); Nitrite, Urine Neg (Neg); Protein, Urine Neg (Neg); Urobilinogen, Urine NORM (Normal)
[2018-12-01 20:33] LABS: BASOPHILS ABSOLUTE AUTO 0.01 K/mm3 (0.00-0.23); BASOPHILS PERCENT AUTO 0 % (0-2); EOSINOPHILS PERCENT AUTO 0 % (0-6); Hematocrit 29.1 % (33.0-51.0); Hemoglobin 9.1 g/dL (11.5-16.0); IMMATURE GRAN ABSOLUTE AUTO 0.08 K/mm3 (0.00-0.10); IMMATURE GRAN PERCENT AUTO 1 % (0-1); LYMPHOCYTES ABSOLUTE AUTO 1.19 K/mm3 (0.84-5.20); LYMPHOCYTES PERCENT AUTO 10 % (21-46); MONOCYTES ABSOLUTE AUTO 0.45 K/mm3 (0.16-1.47); MONOCYTES PERCENT AUTO 4 % (4-13); Mean Corpuscular HGB 28.6 pg (26.0-34.0); Mean Corpuscular HGB Conc 31.3 g/dL (31.5-36.5); Mean Platelet Volume 9.9 fL (9.1-12.4); NEUTROPHILS PERCENT AUTO 86 % (41-73); Platelet Count 274 K/mm3 (150-400); RDW Coefficient Variation 18.3 % (11.7-14.2); RDW Standard Deviation 61.1 fL (35.1-46.3); Red Blood Cell Count 3.18 M/mm3 (3.80-5.20); White Blood Cell Count 12.13 K/mm3 (4.00-11.30)
[2018-12-01 20:35] LABS: Mean Corpuscular Volume 92 fL (80-100)
--- NOTE | 2018-12-01 22:30 | NUR ---
PT ARRIVES TO ICU 3 VIA GURNEY FROM ER. ALERT AND ORIENTED X 3, ADMITS TO SLIGHT NAUSEA ALTHOUGH IMPROVED FROM EARLIER TODAY, DENIES CP/PRESSURE, DENIES SOB/DYSPNEA, DENIES DIZZINESS AT THIS TIME BUT STATES THAT EMS TOLD HER THAT SHE HAD A SYNCOPAL EVENT. SHE IS SPEAKING IN FULL SENTANCES, RESP RATE MID 20S, LUNGS CLEAR THROUGHOUT. HRR, SINUS TACH NOTED ON MONITOR, SBP 110S, MAP MAINTAINING, PULSES FAINT X 4 EXTREMITIES, BILAT HANDS AND FEET NOTED PALE AND COOL, PT REPORTS FEELING COLD, WARM BLANKETS PROVIDED, WILL MONITOR. ABD WITH HYPOACTIVE BOWEL TONES, MILD DISTENTION NOTED, NO GRIMACING OR GUARDING NOTED WITH LIGHT PALPATION. TEMP PROBE POLANCO NOTED, DRAINING CLEAR YELLOW URINE TO GRAVITY. OCTREOTIDE GTT DC'D PER ORDERS, PROTONIX GTT TO RIGHT WRIST, IV ACCESS IS NOTED AT LEFT WRIST 20 GUAGE, SOME BRUISING NOTED PROXIMAL TO INSERTION FLUSHES WELL AT THIS TIME, WILL MONITOR. 18 GUAGE TO LEFT EXTERNAL JUGULAR VEIN, FLUSHES WELL, FIELD START DRESSING IS NOTED, 18 GAUGE TO LEFT FOOT NOTED, FLUSHES WELL, DRESSING CDI, 20 GAUGE TO RIGHT WRIST NOTED FLUSHES WELL, DRESSING CDI.
[2018-12-02 00:05] LABS: Hematocrit 32.6 % (33.0-51.0); Hemoglobin 9.9 g/dL (11.5-16.0)
[2018-12-02 04:04] LABS: Hematocrit 28.8 % (33.0-51.0); Hemoglobin 9.3 g/dL (11.5-16.0)
[2018-12-02 04:24] LABS: Alanine Aminotransfer (ALT/SGP 10 U/L (12-78); Albumin/Globulin Ratio 0.7 (0.8-1.8); Alk Phos 49 U/L (50-136); Anion Gap 9 mmol/L (6-16); Aspartate Aminotrans (AST/SGOT 14 U/L (12-37); Bilirubin, Total 0.6 mg/dL (0.1-1.0); Blood Urea Nitrogen 34 mg/dL (8-24); Bun/Creatinine Ratio 44.2 (12.0-20.0); CO2, Blood 20 mmol/L (21-32); Calcium, Blood 7.4 mg/dL (8.5-10.1); Chloride, Blood 115 mmol/L (98-108); Creatinine, Blood 0.77 mg/dL (0.40-1.00); Globulin, Blood 2.8 g/dL (2.2-4.0); Glomerular Filtration Rate >60 (60-); Glucose, Blood 160 mg/dL (70-99); Potassium, Blood 4.5 mmol/L (3.5-5.5); Sodium, Blood 144 mmol/L (136-145); Total Protein, Blood 4.8 g/dL (6.4-8.2)
--- NOTE | 2018-12-02 06:12 | NUR ---
PT NEW ADMIT THIS SHIFT FOR DX ACUTE BLOOD LOSS/ANEMIA, DENIES PAIN, DENIES NAUSEA, VITAL SIGNS STABLE SINCE ADMISSION. PT HAS C/O FEELING COLD, WARM BLANKETS WERE PROVIDED WITH GOOD RELIEF. LUNGS CLEAR THROUGHOUT SATS WELL ON ROOM AIR, RESP RATE TEENS TO 20S, SENTANCES FULL. HRR, SINUS TO SINUS TACH AT TIMES, BP MAINTAINING WITH NS @ 75 ML/HR, EXTREMITIES REMAIN PALE BUT ARE NOW WARM TO TOUCH WITH IMPROVED PULSES. POLANCO REMAINS IN PLACE DRAINING CLEAR YELLOW URINE TO GRAVITY. ABD REMAINS SOFT, NONTENDER TO LIGHT PALPATION, HYPOACTIVE BOWEL TONES, PT HAS STATED THAT SHE WISHES THAT SHE COULD HAVE CLEAR LIQUIDS, RISKS OF NAUSEA/VOMITING WITH ASPIRATION, RISK OF INCREASED BLEEDING INCLUDING BY EXSANGUINATION DISCUSSED, PT VERBALIZED UNDERSTANDING.
--- NOTE | 2018-12-02 07:34 | NUR ---
START OF SHIFT NOTE: RECEIVED REPORT FROM ROULA ORR, ASSUMED CARE, PATIENT IS AWAKE, ALERT AND ORIENTED, DENIES PAIN, REPORTS NO NAUSEA OR SHOFTNESS OF BREATH, PATIENT HAS L EJ 18G, R HAND 20 G, PROTONIX DRIP INFUSING AT 10 AND NS AT 75 CC/HR, LUNG SOUNDS ARE DIMINISHED WITH FEW CRACKLES THROUGHOUT, NSR WITH VORDERLINE FIRST DEGREE HB, BT'S PRESENT AND HPOACTIVE, SLIGHTLY TENDER TO PALPATION, POLANCO CATHETER WITH TEMP PROBE IN PLACE, PATIENT IS AFEBRILE, CALL LIGHT IN REACH, WILL CONTINUE TO MONITOR.
[2018-12-02 08:03] LABS: Hematocrit 28.3 % (33.0-51.0); Hemoglobin 9.1 g/dL (11.5-16.0)
--- NOTE | 2018-12-02 09:01 | NUR ---
PATIENT RESTING COMFORFORTABLY WITH EYES CLOSED, CALL LIGHT IN REACH, WILL CONTINUE TO MONITOR.
[2018-12-02 12:25] LABS: Hematocrit 32.1 % (33.0-51.0); Hemoglobin 9.9 g/dL (11.5-16.0)
--- NOTE | 2018-12-02 13:20 | NUR ---
PATIENT REQUESTED BEDPAN, FELT LIKE "SOME GAS NEEDS TO COME OUT", PASSED SOME GAS BUT NO BM.
[2018-12-02 16:06] LABS: Hematocrit 29.1 % (33.0-51.0); Hemoglobin 9.1 g/dL (11.5-16.0)
--- NOTE | 2018-12-02 17:50 | NUR ---
SHIFT SUMMARY NOTE: PATIENT IS RESTING COMFORTABLY, TOOK SHORT NAPS THROUGHOUT DAY, DENIES PAIN OR SOB, NO CHEST PAIN/PRESSURE, NO NAUSEA/VOMITING/DIARRHEA, PASSED GAS BUT NO BM DURING THIS SHIFT, REFUSED CLEAR LIQUID DIET, STATED "NOTHING TASTES GOOD AND I WOULD REALLY LIKE TO EAT SOME PIZZA RIGHT NOW BUT IT WOULD COME BACK OUT", VSS, AFEBRIBLE, SCD'S IN PLACE, POLANCO CATHETER DRAINING GOOD AMOUNT OF CLEAR YELLOW URINE, CONTINUES ON PROTONIX GTT AT 10 CC/HR, STARTED ON CLINIMIX FOR ONE BAG AT 50 CC/HR, FOR DETAILS SEE SHIFT ASSESSMENT DOCUMENTATION AND NURSES NOTES, CALL LIGHT IN REACH, WILL CONTINUE TO MONITOR, AND GIVE REPORT TO ONCOMING MOLDER FITTING.
--- NOTE | 2018-12-02 19:17 | NUR ---
ASSUMED CARE OF PT, BEDSIDE REPORT RECEIVED. PT IS ALERT AND ORIENTED, WATCHING TV RECLINING IN BED. DENIES NEEDS AT THIS TIME. STATES THAT PIZZA SOUNDS GOOD BUT DOES UNDERSTAND THE REASON FOR ORDERED CLEAR LIQUID DIET AND IS COMPLIANT WITH ORDERED DIET. DENIES NAUSEA, DENIES NUMBNESS/TINGLING, DENIES CP/PRESSURE, DENIES SOB/DYSPNEA. STATES THAT SHE JUST FEELS TIRED THIS PM. LUNGS CLEAR THROUGHOUT, MAINTAINING SATS ON ROOM AIR, RESP RATE WNL. HRR, SINUS ON MONITOR, RATE 70S, MAINTAINING BP WITH ORDERED IVF, PULSES FULL X 4 EXTREMITIES, SKIN IS PALE, COOL, AND DRY. ABD WITH HYPOACTIVE BOWEL TONES, NO GRIMACING OR GUARDING WITH LIGHT PALPATION, ABD SOFT. TEMP PROBE POLANCO REMAINS IN PLACE, DRAINING CLEAR YELLOW URINE. IV ACCESS NOTED TO LEFT EJ, 18 G INFUSING CLINIMIX AT 50 ML/HR, 20 G IV TO RIGHT WRIST INFUSING NORMAL SALINE AT 75 ML/HR AND PROTONIX GTT. WILL CONT TO MONITOR VS, I&O, LABS, BOWEL TONES, MONITOR FOR NAUSEA/VOMITING, CONTINUE CLEAR LIQUID DIET PER ORDERS.
[2018-12-03 03:31] LABS: BASOPHILS ABSOLUTE AUTO 0.03 K/mm3 (0.00-0.23); BASOPHILS PERCENT AUTO 0 % (0-2); EOSINOPHILS ABSOLUTE AUTO 0.09 K/mm3 (0.00-0.68); EOSINOPHILS PERCENT AUTO 1 % (0-6); Hematocrit 26.6 % (33.0-51.0); Hemoglobin 8.6 g/dL (11.5-16.0); IMMATURE GRAN ABSOLUTE AUTO 0.08 K/mm3 (0.00-0.10); IMMATURE GRAN PERCENT AUTO 1 % (0-1); LYMPHOCYTES ABSOLUTE AUTO 1.88 K/mm3 (0.84-5.20); LYMPHOCYTES PERCENT AUTO 23 % (21-46); MONOCYTES ABSOLUTE AUTO 0.48 K/mm3 (0.16-1.47); MONOCYTES PERCENT AUTO 6 % (4-13); Mean Corpuscular HGB 29.8 pg (26.0-34.0); Mean Corpuscular HGB Conc 32.3 g/dL (31.5-36.5); Mean Corpuscular Volume 92 fL (80-100); Mean Platelet Volume 9.8 fL (9.1-12.4); NEUTROPHILS ABSOLUTE AUTO 5.71 K/mm3 (1.96-9.15); NEUTROPHILS PERCENT AUTO 69 % (41-73); Platelet Count 228 K/mm3 (150-400); RDW Coefficient Variation 18.6 % (11.7-14.2); RDW Standard Deviation 63.7 fL (35.1-46.3); Red Blood Cell Count 2.89 M/mm3 (3.80-5.20); White Blood Cell Count 8.27 K/mm3 (4.00-11.30)
[2018-12-03 03:49] LABS: Percent Saturation 17.3 % (15.0-50.0)
[2018-12-03 03:59] LABS: Alanine Aminotransfer (ALT/SGP 10 U/L (12-78); Albumin/Globulin Ratio 0.7 (0.8-1.8); Alk Phos 51 U/L (50-136); Anion Gap 7 mmol/L (6-16); Aspartate Aminotrans (AST/SGOT 10 U/L (12-37); Bilirubin, Total 0.3 mg/dL (0.1-1.0); Blood Urea Nitrogen 20 mg/dL (8-24); Bun/Creatinine Ratio 32.9 (12.0-20.0); CO2, Blood 24 mmol/L (21-32); Calcium, Blood 7.7 mg/dL (8.5-10.1); Chloride, Blood 108 mmol/L (98-108); Creatinine, Blood 0.61 mg/dL (0.40-1.00); Globulin, Blood 2.7 g/dL (2.2-4.0); Glomerular Filtration Rate >60 (60-); Glucose, Blood 187 mg/dL (70-99); Potassium, Blood 3.6 mmol/L (3.5-5.5); Sodium, Blood 139 mmol/L (136-145); Total Protein, Blood 4.7 g/dL (6.4-8.2)
--- NOTE | 2018-12-03 06:07 | NUR ---
PT RESTS QUIETLY THIS SHIFT, DID HAVE ONE BLACK BOWEL MOVEMENT TONIGHT OTHERWISE DENIES N/V, DENIES CP/PRESSURE, DENIES SOB/DYSPNEA THROUGHOUT THIS SHIFT. LUNGS REMAIN CLEAR THROUGHOUT, SATS HIGH 90S ON ROOM AIR, RESP RATE WNL. HRR, CONTINUES IN SINUS RHYTHM, BP REMAINS STABLE, NO EDEMA, BRISK CAP REFILL, EXTREMITIES CONTINUE PALE AND COOL, FULL PULSES. ABD MILDLY DISTENDED, HYPOACTIVE BOWEL TONES, PT STATES THAT APPETITE CONTINUES POOR AND NOTHING SOUNDS GOOD. POLANCO CONTINUES DRAINING CLEAR YELLOW URINE TO GRAVITY.
--- NOTE | 2018-12-03 07:26 | NUR ---
Recieved report from Kathleen CELESTE. Patient sitting up in bed and is able to communicate her needs clearly, states very tired. She is on RA and sats 99%.Dr Young is here seeing patient and has Dc'd clinimix and Fluids and protonix remains at 10ml/hr. She has REJ dressing intact and site WNL, flushed and clinimix stopped, will be pulling since not needed and patient requests. She also has 20ga IV RH dressing intact anmd site WNL's and is infusing Protonix. She has 16Fr. Temp woods and is draining to gravity clear yellow urine. HR 70's and systolic 120's. She states not sure if she could stand for shower and would consider sitting. She is wearing SCD's bilaterally. She states not very interested in any clear liquid diet this am.
--- NOTE | 2018-12-03 09:30 | NUR ---
Patient has been up to bathroom with assist and had small sof black stool. She wanted to go back to bed instaed of chair. She ate very small amount of breakfast and denies wanting anymore. She denies any current pain. She is PCU status and will be moving to PCU 7 when ready and clean.
--- NOTE | 2018-12-03 13:05 | NUR ---
Mrs. Anderson appears frail and withdrawn. Family and friends at bedside. They were also withdrawn. Per admit trigger, I offered prayer to pt. She quietly accepted prayer for healing. I will remain available.
[2018-12-03 15:01] LABS: Hematocrit 29.4 % (33.0-51.0); Hemoglobin 9.4 g/dL (11.5-16.0)
--- NOTE | 2018-12-03 19:55 | NUR ---
SHIFT SUMMARY Assumed care of pt upon arrival to unit at 1100. Telephone report received from Denys CELESTE. Pt on room air. Sinus bradycardia per telemetry. Pt OOB with assist from aide. This RN agrees with shift assessment charted by Denys CELESTE. No changes since arrival to unit. Report given to oncoming RNAlondra.
[2018-12-04 04:07] LABS: BASOPHILS ABSOLUTE AUTO 0.02 K/mm3 (0.00-0.23); BASOPHILS PERCENT AUTO 0 % (0-2); EOSINOPHILS ABSOLUTE AUTO 0.08 K/mm3 (0.00-0.68); EOSINOPHILS PERCENT AUTO 1 % (0-6); Hematocrit 28.7 % (33.0-51.0); Hemoglobin 9.3 g/dL (11.5-16.0); IMMATURE GRAN ABSOLUTE AUTO 0.04 K/mm3 (0.00-0.10); IMMATURE GRAN PERCENT AUTO 1 % (0-1); LYMPHOCYTES ABSOLUTE AUTO 1.47 K/mm3 (0.84-5.20); LYMPHOCYTES PERCENT AUTO 24 % (21-46); MONOCYTES ABSOLUTE AUTO 0.42 K/mm3 (0.16-1.47); MONOCYTES PERCENT AUTO 7 % (4-13); Mean Corpuscular HGB 29.3 pg (26.0-34.0); Mean Corpuscular HGB Conc 32.4 g/dL (31.5-36.5); Mean Corpuscular Volume 91 fL (80-100); Mean Platelet Volume 9.5 fL (9.1-12.4); NEUTROPHILS ABSOLUTE AUTO 4.17 K/mm3 (1.96-9.15); NEUTROPHILS PERCENT AUTO 67 % (41-73); Platelet Count 264 K/mm3 (150-400); RDW Coefficient Variation 18.3 % (11.7-14.2); Red Blood Cell Count 3.17 M/mm3 (3.80-5.20)
[2018-12-04 04:29] LABS: Anion Gap 7 mmol/L (6-16); Blood Urea Nitrogen 11 mg/dL (8-24); Bun/Creatinine Ratio 18.8 (12.0-20.0); CO2, Blood 25 mmol/L (21-32); Calcium, Blood 8.1 mg/dL (8.5-10.1); Chloride, Blood 109 mmol/L (98-108); Creatinine, Blood 0.59 mg/dL (0.40-1.00); Glomerular Filtration Rate >60 (60-); Glucose, Blood 137 mg/dL (70-99); Potassium, Blood 3.3 mmol/L (3.5-5.5); Sodium, Blood 141 mmol/L (136-145)
--- NOTE | 2018-12-04 05:37 | NUR ---
SHIFT SUMMARY: PATIENT HAS FLAT AFFECT BUT COOPERATIVE WITH CARE, ENCOURAGED TO USE CALL LIGHT WHEN IN NEED SHE TENDS TO 'NOT WANT TO MAKE TROUBLE'. INTERMITTENTLY FORGETFULL BUT EASILY REORIENTED AND COMPLIANT WITH CARE. PATEINT VSS, CALL LIGHT WITHIN REACH, BED LOW AND LOCKED WITH EXIT ALARM ON. FLUIDS ENCOURAGED BUT REFUSED A MAJORITY OF THE SHIFT.
--- NOTE | 2018-12-04 10:54 | NUR ---
BEGINNING OF SHIFT Assumed care of pt at 0700. Report received from Alondra CELESTE. Pt on room air. Medical floor status without telemetry per new orders from Dr Young. Prior to removal of telemetry, pt was sinus rhythm with rate of 71. Bed in lowest position. Call light in reach. Pt denies need at this time.
--- NOTE | 2018-12-04 18:22 | NUR ---
SHIFT SUMMARY No changes since shift assessment. Pt's appetite and minimal intake of PO fluids discussed with Dr Young. Pt's diet advanced to full liquids, as these options may sound more appetizing to the pt. Discussed pt's intake with design/animation instructor, Deandra. Pt states that if she has nausea and pain when she drinks. This RN offered premedicating with pain and nausea meds before meal trays arrive and pt refused. Pt transferred to room 312. Report given to medical floor nurse. This RN transferred to new room via wheelchair. Chart, medications, and belongings transferred with patient.
--- NOTE | 2018-12-04 18:23 | NUR ---
SHIFT SUMMARY PCU TRANSFER THIS AFTERNOON. PATIENT SETTLED INTO ROOM. DENIES PAIN, NAUSEA, OR SHORTNESS OF BREATH. UP TO BATHROOM SBA. DECLINED DINNER EXCEPT FOR CRACKERS. CALL LIGHT IN REACH, WILL CONTINUE TO MONITOR.
[2018-12-05 04:52] LABS: BASOPHILS ABSOLUTE AUTO 0.02 K/mm3 (0.00-0.23); BASOPHILS PERCENT AUTO 0 % (0-2); EOSINOPHILS ABSOLUTE AUTO 0.06 K/mm3 (0.00-0.68); EOSINOPHILS PERCENT AUTO 1 % (0-6); Hemoglobin 9.6 g/dL (11.5-16.0); IMMATURE GRAN ABSOLUTE AUTO 0.03 K/mm3 (0.00-0.10); IMMATURE GRAN PERCENT AUTO 1 % (0-1); LYMPHOCYTES ABSOLUTE AUTO 1.52 K/mm3 (0.84-5.20); LYMPHOCYTES PERCENT AUTO 27 % (21-46); MONOCYTES ABSOLUTE AUTO 0.48 K/mm3 (0.16-1.47); MONOCYTES PERCENT AUTO 9 % (4-13); Mean Corpuscular HGB 29.1 pg (26.0-34.0); Mean Corpuscular Volume 91 fL (80-100); Mean Platelet Volume 9.9 fL (9.1-12.4); NEUTROPHILS ABSOLUTE AUTO 3.44 K/mm3 (1.96-9.15); NEUTROPHILS PERCENT AUTO 62 % (41-73); Platelet Count 266 K/mm3 (150-400); RDW Coefficient Variation 18.8 % (11.7-14.2); White Blood Cell Count 5.55 K/mm3 (4.00-11.30)
[2018-12-05 05:08] LABS: Anion Gap 6 mmol/L (6-16); Blood Urea Nitrogen 9 mg/dL (8-24); Bun/Creatinine Ratio 15.9 (12.0-20.0); CO2, Blood 25 mmol/L (21-32); Calcium, Blood 8.5 mg/dL (8.5-10.1); Chloride, Blood 111 mmol/L (98-108); Creatinine, Blood 0.57 mg/dL (0.40-1.00); Glomerular Filtration Rate >60 (60-); Glucose, Blood 150 mg/dL (70-99); Potassium, Blood 3.8 mmol/L (3.5-5.5); Sodium, Blood 142 mmol/L (136-145)
--- NOTE | 2018-12-05 06:30 | NUR ---
Shift summary- Pt has slept well most of shift with no c/o discomfort. No reports of dizziness. Pt has poor appetite- states it causes her to become nauseated. Even clear liquids. Protonix drip running continuously. Unable to get stool sample- did not have a bowel movement. Needs assist to bathroom- still feeling weak.
--- NOTE | 2018-12-05 11:26 | NUR ---
PATIENT GAVE PERMISSION FOR THIS STUDENT NURSE TO CONDUCT A HEAD TO TOE ASSESSMENT AND ACCESS HER CHART ON 12/05/2018
--- NOTE | 2018-12-05 18:35 | NUR ---
SHIFT SUMMARY NO CHANGES IN ASSESSMENT AT THIS TIME. VSS. PT STATES THAT SHE IS "FEELING BETTER." PT CONTINUES TO HAVE LITTLE APPETITE. CLINIMIX RUNNING AT 75ML/HR & PROTONIX AT 10ML/HR IN SEPARATE IVS. PT TOLERATING BOTH WELL. WILL CONTINUE TO MONITOR UNTIL TURNOVER IS COMPLETE. PT YET TO HAVE A BM.
[2018-12-06 05:22] LABS: BASOPHILS ABSOLUTE AUTO 0.01 K/mm3 (0.00-0.23); BASOPHILS PERCENT AUTO 0 % (0-2); EOSINOPHILS ABSOLUTE AUTO 0.04 K/mm3 (0.00-0.68); EOSINOPHILS PERCENT AUTO 1 % (0-6); Hematocrit 31.2 % (33.0-51.0); Hemoglobin 9.9 g/dL (11.5-16.0); IMMATURE GRAN ABSOLUTE AUTO 0.03 K/mm3 (0.00-0.10); IMMATURE GRAN PERCENT AUTO 1 % (0-1); LYMPHOCYTES ABSOLUTE AUTO 1.58 K/mm3 (0.84-5.20); LYMPHOCYTES PERCENT AUTO 28 % (21-46); MONOCYTES ABSOLUTE AUTO 0.43 K/mm3 (0.16-1.47); MONOCYTES PERCENT AUTO 8 % (4-13); Mean Corpuscular HGB 28.7 pg (26.0-34.0); Mean Corpuscular HGB Conc 31.7 g/dL (31.5-36.5); Mean Corpuscular Volume 90 fL (80-100); Mean Platelet Volume 9.8 fL (9.1-12.4); NEUTROPHILS ABSOLUTE AUTO 3.63 K/mm3 (1.96-9.15); NEUTROPHILS PERCENT AUTO 64 % (41-73); Platelet Count 297 K/mm3 (150-400); RDW Coefficient Variation 18.6 % (11.7-14.2); Red Blood Cell Count 3.45 M/mm3 (3.80-5.20); White Blood Cell Count 5.72 K/mm3 (4.00-11.30)
--- NOTE | 2018-12-06 05:48 | NUR ---
LYING IN SEMI FOWLERS WITH EYES CLOSED. REPOSITIONS SELF FOR COMFORT. DENIES FURTHER NEEDS AT THIS TIME. SAFETY MEASURES IN PLACE. WILL GIVE HAND OFF TO ONCOMING SHIFT USING SBAR,
[2018-12-06 06:42] LABS: Alanine Aminotransfer (ALT/SGP 22 U/L (12-78); Albumin, Blood 2.6 g/dL (3.4-5.0); Albumin/Globulin Ratio 0.9 (0.8-1.8); Alk Phos 66 U/L (50-136); Anion Gap 6 mmol/L (6-16); Aspartate Aminotrans (AST/SGOT 21 U/L (12-37); Bilirubin, Total 0.4 mg/dL (0.1-1.0); Blood Urea Nitrogen 15 mg/dL (8-24); Bun/Creatinine Ratio 26.1 (12.0-20.0); CO2, Blood 25 mmol/L (21-32); Calcium, Blood 9.1 mg/dL (8.5-10.1); Chloride, Blood 108 mmol/L (98-108); Creatinine, Blood 0.57 mg/dL (0.40-1.00); Glomerular Filtration Rate >60 (60-); Glucose, Blood 238 mg/dL (70-99); Potassium, Blood 3.7 mmol/L (3.5-5.5); Sodium, Blood 139 mmol/L (136-145); Total Protein, Blood 5.6 g/dL (6.4-8.2)
--- NOTE | 2018-12-06 14:14 | NUR ---
SUMMARY PT IS A/O X4, PLEASANT HOWEVER SOMEWHAT FLAT, QUIET AFFECT. DX DUODENAL ULCER, SHE WAS ON FULL LIQUIDS & PROTONIX GTT THIS AM. H&H IMPROVED, 9.9/31.2. DR MELGAR IN TO SEE HER THIS AM, D/C PROTONIX GTT, START ORAL. DIET INCREASED TO MECH SOFT, SHE TOLERATE WELL @ LUNCHTIME, STATE NO NAUSEA OR ABD PAIN. SHE WAS UP WITH PHYTHER, SBA, GAIT WEAK. VSS.
[2018-12-07 05:31] LABS: Hematocrit 32.5 % (33.0-51.0); Hemoglobin 10.3 g/dL (11.5-16.0)
--- NOTE | 2018-12-07 06:08 | NUR ---
SHIFT SUMMARY NO ACUTE CHANGES TO PRESENT THIS SHIFT. PT RESTED QUIETLY THRU OUT THE NIGHT. CONTINUED TO DENY NEEDS. NO C/O. FLAT AFFECT, BUT CO-OP WITH CARE. APPEARS WEAK AND DECONDITIONED. PT INFORMED OF NEEDED STOOL CX AT START OF SHIFT. VERBALIZED UNDERSTANDING, BUT HAS NOT HAD A BM TO PRESENT. A&O, ABLE TO MAKE NEEDS KNOWN. CALL LT IN REACH.
--- NOTE | 2018-12-07 10:59 | NUR ---
DISCHARGE PT STATE NO NAUSEA, NO ABD PAIN THIS AM, STATE FEELING IMPROVED HOWEVER CONTINUES FATIGUED/WEAK. DR MELGAR IN TO SEE HER, DISCUSS PROGRESS, STATE SHE MAY GO HOME TODAY, PLACE D/C ORDERS. MINING TECHNICIAN IN TO SEE PT TO REVIEW & PLAN SAFE D/C. NEW SCRIPTS FAXED TO [facility]/REQUEST. PT WILL NOTIFY FAMILY FOR TRANSPORT HOME. D/C INSTRUCT PROVIDED.
[2018-12-07] MEDS ORDERED: MIRT15 PO (11:40)
[2018-12-07] MEDS ORDERED: GLIM2 PO (11:42)
[2018-12-07] MEDS ORDERED: PANT40 PO (11:42)
== END 2018-12-07 12:56 | disposition home or self-care (01) | DRG 380 ==
LOC: ER 17:25 → ICUW 22:17 → ICUE 22:17 → PCU 12-03 11:00 → MEDS 12-04 16:48 → ENPENDDIS 12-07 09:57 → MEDS 12-07 12:56
PROVIDERS: Hospitalist; Internal Medicine; Nurse Practitioner Acute Care; Physician Assistant; ADMIT Internal Medicine
PROC: 30233N1 Transfusion of Nonautologous Red Blood Cells into Peripheral Vein, Percutaneous Approach (ICD-10-PCS; principal; 2018-12-01)
DX: K26.5 Chronic or unspecified duodenal ulcer with perforation (principal); R57.8 Other shock; D62 Acute posthemorrhagic anemia; E87.2 Acidosis; E03.9 Hypothyroidism, unspecified; E11.9 Type 2 diabetes mellitus without complications; Z79.84 Long term (current) use of oral hypoglycemic drugs; E86.0 Dehydration; I95.1 Orthostatic hypotension; I10 Essential (primary) hypertension; E87.6 Hypokalemia; Z87.891 Personal history of nicotine dependence
CPT/HCPCS: 36415; 36430; 51702; 74177; 80048; 80053; 81003; 82330; 82728; 82947; 83540; 83550; 83605; 83690; 84484; 85014; 85018; 85025; 85610; 85730; 86850; 86900; 86901; 86923; 93005; 93010; 96365-59; 96366-59; 96368; 97162; 97530; 99285-25; C1751; C9113; J0610; J2765; J3480; J7030; J7050; P9016; Q9967

== ENCOUNTER → 2022-06-13 | Outpatient (CLI) | payer OTHER ==
[~2022-06-13] MED LIST changes: +GLIM2 PO; +MIRT15 PO; +PANT40 PO
[2022-06-14 14:12] LABS: Candida species (DNA Probe) Positive (NEGATIVE); G. vaginalis (DNA Probe) Negative (NEGATIVE); T. vaginalis (DNA Probe) Negative (NEGATIVE)
== END | disposition home or self-care (01) ==
LOC: LAB 17:37 → LAB SHORT 17:37
PROVIDERS: Nurse Practitioner
DX: R39.198 Other difficulties with micturition (principal)
CPT/HCPCS: 87077; 87086; 87186; 87480; 87510; 87660

== ENCOUNTER → 2022-07-25 | Outpatient (CLI) | payer OTHER ==
[2022-07-25 15:09] LABS: BASOPHILS ABSOLUTE AUTO 0.03 K/mm3 (0.00-0.23); BASOPHILS PERCENT AUTO 0 % (0-2); EOSINOPHILS ABSOLUTE AUTO 0.02 K/mm3 (0.00-0.68); EOSINOPHILS PERCENT AUTO 0 % (0-6); Hematocrit 43.6 % (33.0-51.0); Hemoglobin 14.3 g/dL (11.5-16.0); IMMATURE GRAN ABSOLUTE AUTO 0.02 K/mm3 (0.00-0.10); IMMATURE GRAN PERCENT AUTO 0 % (0-1); LYMPHOCYTES ABSOLUTE AUTO 2.65 K/mm3 (0.84-5.20); LYMPHOCYTES PERCENT AUTO 30 % (21-46); MONOCYTES ABSOLUTE AUTO 0.43 K/mm3 (0.16-1.47); MONOCYTES PERCENT AUTO 5 % (4-13); Mean Corpuscular HGB Conc 32.8 g/dL (31.5-36.5); Mean Corpuscular Volume 82 fL (80-100); Mean Platelet Volume 9.7 fL (9.1-12.4); NEUTROPHILS PERCENT AUTO 64 % (41-73); Platelet Count 273 K/mm3 (150-400); RDW Coefficient Variation 13.2 % (11.7-14.2); RDW Standard Deviation 39.1 fL (35.1-46.3); White Blood Cell Count 8.75 K/mm3 (4.00-11.30)
[2022-07-25 15:24] LABS: Albumin, Blood 3.9 g/dL (3.4-5.0); Bilirubin, Total 0.6 mg/dL (0.1-1.0); Bun/Creatinine Ratio 13.1 (12.0-20.0); Calcium, Blood 9.9 mg/dL (8.5-10.1); Creatinine, Blood 1.22 mg/dL (0.40-1.00); Globulin, Blood 4.1 g/dL (2.2-4.0); Potassium, Blood 4.1 mmol/L (3.5-5.5)
== END | disposition home or self-care (01) ==
LOC: LAB SHORT 15:04 → LAB 15:04
PROVIDERS: Physician Assistant
DX: R07.9 Chest pain, unspecified (principal)
CPT/HCPCS: 80053; 83690; 84484; 85025

== ENCOUNTER 2023-05-05 10:25 | Emergency (ER) | payer OTHER ==
[~2023-05-05] VITALS: Ht 160 cm; Wt 68.0 kg
[2023-05-05 11:07] LABS: BASOPHILS ABSOLUTE AUTO 0.03 K/mm3 (0.00-0.23); BASOPHILS PERCENT AUTO 0 % (0-2); EOSINOPHILS ABSOLUTE AUTO 0.05 K/mm3 (0.00-0.68); EOSINOPHILS PERCENT AUTO 1 % (0-6); Hematocrit 32.7 % (33.0-51.0); Hemoglobin 10.6 g/dL (11.5-16.0); IMMATURE GRAN ABSOLUTE AUTO 0.03 K/mm3 (0.00-0.10); IMMATURE GRAN PERCENT AUTO 0 % (0-1); LYMPHOCYTES ABSOLUTE AUTO 2.17 K/mm3 (0.84-5.20); LYMPHOCYTES PERCENT AUTO 29 % (21-46); MONOCYTES ABSOLUTE AUTO 0.47 K/mm3 (0.16-1.47); MONOCYTES PERCENT AUTO 6 % (4-13); Mean Corpuscular HGB 26.9 pg (26.0-34.0); Mean Corpuscular HGB Conc 32.4 g/dL (31.5-36.5); Mean Corpuscular Volume 83 fL (80-100); NEUTROPHILS ABSOLUTE AUTO 4.64 K/mm3 (1.96-9.15); NEUTROPHILS PERCENT AUTO 63 % (41-73); Platelet Count 218 K/mm3 (150-400); RDW Coefficient Variation 13.5 % (11.7-14.2); RDW Standard Deviation 40.9 fL (35.1-46.3); Red Blood Cell Count 3.94 M/mm3 (3.80-5.20); White Blood Cell Count 7.39 K/mm3 (4.00-11.30)
[2023-05-05 11:13] LABS: Bun/Creatinine Ratio 14.8 (12.0-20.0); Calcium, Blood 8.7 mg/dL (8.5-10.1); Creatinine, Blood 1.55 mg/dL (0.40-1.00)
[2023-05-05 12:00] VITALS: BP 147/130
== END 2023-05-05 12:25 | disposition home or self-care (01) ==
LOC: ER 10:25
PROVIDERS: Emergency Medicine
DX: R42 Dizziness and giddiness (principal); T42.6X5A Adverse effect of other antiepileptic and sedative-hypnotic drugs, initial encounter; Z79.899 Other long term (current) drug therapy; Z79.84 Long term (current) use of oral hypoglycemic drugs; E03.9 Hypothyroidism, unspecified; I10 Essential (primary) hypertension; E11.9 Type 2 diabetes mellitus without complications; Z87.891 Personal history of nicotine dependence
CPT/HCPCS: 80048; 85025; 93005; 93010; 99284-25; A9270

== ENCOUNTER → 2024-02-22 | Outpatient (CLI) | payer OTHER | END | disposition home or self-care (01) | LOC: LAB 17:16 → LAB SHORT 17:16 | DX: R30.0 Dysuria (principal) | CPT/HCPCS: 87102 ==

== ENCOUNTER → 2024-05-23 | Outpatient (CLI) | payer OTHER | LOC: LAB SHORT 14:15 → LAB 14:15 | DX: R30.0 Dysuria (principal) | CPT/HCPCS: 87077; 87086; 87185; 87186 ==

== ENCOUNTER → 2024-08-20 | Outpatient (CLI) | payer OTHER | END | disposition home or self-care (01) | LOC: LAB 17:47 → LAB SHORT 17:47 | DX: N39.0 Urinary tract infection, site not specified (principal) | CPT/HCPCS: 87086 ==

== ENCOUNTER → 2024-08-30 | Outpatient (CLI) | payer OTHER | LOC: LAB 15:28 → LAB SHORT 15:28 | DX: N39.0 Urinary tract infection, site not specified (principal) | CPT/HCPCS: 87086 ==

== ENCOUNTER → 2024-09-09 | Outpatient (CLI) | payer OTHER ==
[2024-09-09 12:53] LABS: Source, Urine Clean Catch
[2024-09-09 14:25] LABS: Appearance, Urine Hazy (Clear); Bilirubin, Urine Neg (Neg); Blood, Urine 1+ (Neg); Glucose Qualitative, Urine 4+ (Neg); Ketones, Urine Neg (Neg); Leukocyte Esterase, Urine Neg (Neg); Nitrite, Urine Neg (Neg); Protein, Urine 1+ (Neg); Urobilinogen, Urine NORM (Normal)
[2024-09-09 14:38] LABS: Color, Urine Pale Yellow (P-Yellow)
[2024-09-09 14:39] LABS: Bacteria Mod /hpf; Red Blood Cells, Urine 0-2 /hpf (0-2); Squamous Epithelial Cells Mod /hpf (Few); White Blood Cells, Urine 0-2 /hpf (0-5)
[2024-09-09 15:15] LABS: Creatinine, Urine Random 45.7 mg/dL (27.00-270.00); Microalbumin, Random Urine 36.1 mg/L (0.000-20.000)
[2024-09-09 15:16] LABS: Microalb/Creat Ratio UR, Rand 78.993 mg/g (0.000-30.000)
== END ==
LOC: LAB SHORT 10:15 → LAB 10:15
PROVIDERS: Hospitalist
DX: E11.22 Type 2 diabetes mellitus with diabetic chronic kidney disease (principal); N18.4 Chronic kidney disease, stage 4 (severe)
CPT/HCPCS: 81001; 82043; 82570; 87086

== ENCOUNTER → 2024-11-14 | Outpatient (CLI) | payer OTHER ==
[2024-11-14 13:21] LABS: Source, Urine Clean Catch
[2024-11-14 15:39] LABS: Appearance, Urine Hazy (Clear); Bilirubin, Urine Neg (Neg); Blood, Urine 2+ (Neg); Glucose Qualitative, Urine Neg (Neg); Ketones, Urine Neg (Neg); Leukocyte Esterase, Urine 3+ (Neg); Nitrite, Urine Pos (Neg); Protein, Urine 2+ (Neg); Urobilinogen, Urine NORM (Normal)
[2024-11-14 15:52] LABS: Color, Urine Pale Yellow (P-Yellow)
[2024-11-14 15:53] LABS: Bacteria Mod /hpf; Red Blood Cells, Urine 0-2 /hpf (0-2); Squamous Epithelial Cells Few /hpf (Few)
== END ==
LOC: LAB 13:18 → LAB SHORT 13:18
PROVIDERS: Hospitalist
DX: N18.32 Chronic kidney disease, stage 3b (principal); R82.90 Unspecified abnormal findings in urine
CPT/HCPCS: 81001; 87077; 87086; 87186

== ENCOUNTER → 2025-04-04 | Outpatient (CLI) | payer OTHER ==
[2025-04-04 10:17] LABS: Source, Urine Clean Catch
[2025-04-04 11:44] LABS: Bilirubin, Urine Neg (Neg); Color, Urine Yellow (P-Yellow); Glucose Qualitative, Urine Neg (Neg); Ketones, Urine Neg (Neg); Leukocyte Esterase, Urine 3+ (Neg); Protein, Urine 3+ (Neg); Specific Gravity, Urine 1.015 (1.003-1.022); Urobilinogen, Urine NORM (Normal)
[2025-04-04 11:47] LABS: White Blood Cells, Urine 50-100 /hpf (0-5)
[2025-04-04 11:48] LABS: Red Blood Cells, Urine 25-50 /hpf (0-2)
== END ==
LOC: LAB SHORT 10:15 → LAB 10:15
PROVIDERS: Physician Assistant
DX: R35.0 Frequency of micturition (principal)
CPT/HCPCS: 81001; 87086